=== PATIENT | male | born 1970 | race Caucasian/White ===

== ENCOUNTER 2019-07-04 10:42 | Outpatient (CLI) | payer BC ==
--- NOTE | 2019-07-04 10:58 | RAD ---
EXAM: Chest PA and lateral: HISTORY: Dyspnea. Cough. Symptoms x2 weeks. COMPARISON: 07/24/2017 FINDINGS: Heart: Normal cardiac silhouette Aorta: Unremarkable Pulmonary vessels: Normal Costophrenic angles: Costophrenic angles are clear. Lungs: Probable atelectasis or scarring in the lingula with partial obscuration left heart border. Pa tchy interstitial opacity in the right midlung. Chronic lung parenchymal changes with hyperinflation. Pneumothorax: No pneumothorax Osseous structures: No osseous abnormalities IMPRESSION: 1 Scar or atelectasis in the lingula. 2. Patchy interstitial opacities in the right midlung. 3. Better interrogation with chest CT
== END 2019-07-04 10:43 | disposition home or self-care (01) ==
LOC: BICRAD 10:42
PROVIDERS: ATTEND Family Medicine
DX: R06.02 Shortness of breath (principal); R91.8 Other nonspecific abnormal finding of lung field
CPT/HCPCS: 71046

== ENCOUNTER 2019-07-22 08:19 | Outpatient (CLI) | payer BC ==
--- NOTE | 2019-07-22 13:28 | CT ---
CT CHEST WITH IV CONTRAST: HISTORY: Abnormal chest x-ray. CORRELATION: Chest radiographs of 07/04/2019. FINDINGS: No evidence of mediastinal, hilar, or axillary mass or lymphadenopathy is seen. No pleural or perica rdial effusions are identified. There is a large left upper lobe bulla in a pericardiac location trent suring about 12 cm in largest dimension. No pneumothoraces, focal areas of consolidation, or lung ma sses/nodules are seen. There are degenerative changes in the spine. Upper abdominal tomograms are u nremarkable. IMPRESSION: Large bulla in the left upper lobe. POS: [facility]
== END 2019-07-22 08:20 | disposition home or self-care (01) ==
LOC: SCSCT 08:19
PROVIDERS: ATTEND Family Medicine
DX: R91.1 Solitary pulmonary nodule (principal); J43.9 Emphysema, unspecified
CPT/HCPCS: 71260

== ENCOUNTER 2020-08-11 10:09 | Outpatient (CLI) | payer BC | END 2020-08-11 10:10 | disposition home or self-care (01) | LOC: BICCT 10:09 | PROVIDERS: ATTEND Internal Medicine Critical Care Medicine | DX: J43.9 Emphysema, unspecified (principal); J98.11 Atelectasis | CPT/HCPCS: 71250 ==

== ENCOUNTER 2021-10-12 07:54 | Outpatient (CLI) | payer BC ==
[2021-10-12] MEDS ORDERED: Iopamidol-370 76% 500 ML 1 ML ONE (08:37)
== END 2021-10-12 07:55 | disposition home or self-care (01) ==
LOC: BICCT 07:54
PROVIDERS: ATTEND Internal Medicine Pulmonary Disease
DX: R91.8 Other nonspecific abnormal finding of lung field (principal)
CPT/HCPCS: 71260; Q9967